=== PATIENT | male | born 1995 | race Caucasian/White ===

== ENCOUNTER 2019-12-14 11:27 | Outpatient (CLI) | payer OTHER, SELFPAY ==
--- NOTE | ~2019-12-14 | XR_ITS ---
EXAMINATION:XR cervical spine 4-5V DATE: 12/14/2019 12:35 INDICATION: Neck pain TECHNIQUE: AP, lateral, lateral swimmers, submental and odontoid views of the cervical spine are prov ided. COMPARISON: None FINDINGS: 14 degrees cervicothoracic levocurvature measured between C6 and T4. Sagittal alignment is normal. Od ontoid is intact. Normal atlantoaxial interval. Vertebral body heights are normal. Disc spaces are n ormal. Prevertebral soft tissues are normal. Visualized apices of lungs are clear. IMPRESSION: 1. Mild cervical thoracic levocurvature. Otherwise unremarkable cervical spine radiographs. Reviewed, dictated and finalized at location A.
[2019-12-14 12:20] LABS: Basophils Percent Auto 0.4 % (0.2-1.2); Eosinophils Percent Auto 0.6 % (0-4.4); Hematocrit 45.9 % (42.0-52.0); Hemoglobin 15.7 g/dL (14.0-18.0); Immature Granulocyte Absolute 0.01 K/mm3 (0.00-0.031); Immature Granulocyte Percent A 0.2 % (0-0.5); Lymphocytes Absolute Auto 1.83 K/mm3 (0.9-3.2); Lymphocytes Percent Auto 36.8 % (18.3-44.2); Mean Corpuscular HGB Conc 34.2 g/dl (32-36); Mean Corpuscular Hemoglobin 29.7 pg (26-34); Mean Corpuscular Volume 86.8 fl (80-100); Mean Platelet Volume 9.6 fl (7.4-10.4); Monocytes Absolute Auto 0.4 K/mm3 (0.1-0.6); Monocytes Percent Auto 8.7 % (2.6-8.5); Neutrophils Absolute Auto 2.7 K/mm3 (1.3-6.7); Neutrophils Percent Auto 53.3 % (45.5-73.1); Platelet Count Result 249 k/mm3 (150-375); Red Blood Count 5.29 M/mm3 (4.6-6.20); Red Cell Distribution Width 12.1 % (11.5-14.5)
[2019-12-14 12:28] LABS: Alanine Aminotransferase 22 U/L (4-50); Albumin Level 4.6 g/dL (3.5-5.1); Alkaline Phosphatase 80 U/L (38-126); Anion Gap 9 mmol/L (8-16); Aspartate Amino Transferase 22 U/L (17-59); Bilirubin,Total 1.2 mg/dL (0.2-1.3); Blood Urea Nitrogen 15 mg/dL (9-20); Calcium 9.6 mg/dL (8.4-10.2); Carbon Dioxide 29 mmol/L (22-30); Chloride 104 mmol/L (98-107); Cholesterol 149 mg/dL (0-200); Estimated Glomerular Filt Rate > 60; Glucose 97 mg/dL (75-110); HDL Direct 46 mg/dL; Sodium 142 mmol/L (137-145); Triglycerides 41 mg/dL (<150)
[2019-12-14 12:39] LABS: LDL Cholesterol Direct 90 mg/dL
== END 2019-12-14 11:28 | disposition home or self-care (01) ==
DX: Z00.00 Encounter for general adult medical examination without abnormal findings (principal); M54.2 Cervicalgia; M41.82 Other forms of scoliosis, cervical region
CPT/HCPCS: 36415; 72050; 80053; 80061; 83036; 85025